=== PATIENT | male | born 1955 | race African-American/Black ===

== ENCOUNTER 2016-06-07 12:22 | Emergency (ER) | payer OTHER ==
[~2016-06-07] VITALS: Ht 185.4 cm; Wt 63.5 kg
[~2016-06-07 12:22] MED LIST: DOXY100T PO; PRED20 PO; Z.0.NO CURRENT MEDS
[2016-06-07 12:30] VITALS: BP 153/84; PULSE 88; RESP 15; TEMP 98.1; O2SAT 98
--- NOTE | 2016-06-07 12:30 | PD ---
Physical Exam Date Seen by Provider: Jun 07, 2016 Time Seen by Provider: 12:28 Narrative 61 year old male presents to the emergency department for evaluation of right hip. He had previous surgery for pelvic fracture in November 2015. He feels like there may be a screw loose. He is able to ambulate, but with pain. No recent trauma. Patient awaiting bed placement. [facility] Supervised Visit with QUANG: Zoie Hoang Jun 07, 2016 12:30
--- NOTE | 2016-06-07 12:49 | PD ---
HPI Chief Complaint: Back/ Neck Pain or Injury Time Seen by Provider: 12:43 Travel History International Travel<30 days: No Contact w/Intl Traveler<30days: No Traveled to known affect area: No History of Present Illness HPI Patient is a 61-year-old male presents the emergency department with complaint of pain. Patient fractured his pelvis in November 2015 and had surgery at [facility] in [place]. States that he had 3 screws placed in the pelvis, 2 anteriorly and one posteriorly. The posterior screw has been "wiggling out" and giving patient pain. He is only been ambulatory for approximately 2 months duration and states that during this time it has gotten worse. He has not called his surgeon at [facility]. [facility]. Pain is moderate, throbbing, point tenderness in the posterior pelvis at the site of the screw. PFSH Past Medical History Diminished Hearing: No Inguinal Hernia: Yes Immunizations Current: No Past Surgical History Abdominal Surgery: Yes (HERNIA SURGERY) Social History Alcohol Use: No Tobacco Use: No Substance Use: No Allergies-Medications (Allergen,Severity, Reaction): Coded Allergies: No Known Allergies (Verified , 06/07/16) Reported Meds & Prescriptions Reported Meds & Active Scripts Active Reported Proair Hfa 8.5 GM Inh (Albuterol Sulfate) 90 Mcg/Act Aer 1 Puff INH Q4H PRN 108 mcg/actuation Gabapentin 300 Mg Cap 300 Mg PO HS [Expectorant] Unknown Dose PO DAILY Ibuprofen 600 Mg Tab 600 Mg PO Q6H PRN Review of Systems Except as stated in HPI: all other systems reviewed are Neg Physical Exam Narrative GENERAL: Thin male in mild distress SKIN: Focused skin assessment warm/dry. HEAD: Normocephalic. EYES: No scleral icterus. No injection or drainage. ENT: Mucous membranes pink and moist. NECK: Supple CARDIOVASCULAR: Regular rate and rhythm. RESPIRATORY: No accessory muscle use. MUSCULOSKELETAL: Posterior pelvis with screw protruding slightly from the bony rim of the pelvic anatomy. Patient has point tenderness at this region. There is no erythema or open wounds. NEUROLOGICAL: Awake and alert. Normal speech. PSYCHIATRIC: Appropriate mood and affect; insight and judgment normal. Data Data Last Documented VS Vital Signs Date Time Temp Pulse Resp B/P Pulse Ox O2 Delivery O2 Flow Rate FiO2 06/07/16 13:18 16 06/07/16 12:30 98.1 88 153/84 98 Orders Pelvis Complete, Min 3 Vws (06/07/16 ) Acetaminophen (Tylenol) (06/07/16 13:00) Pelvis, Ap And Lat (06/07/16 ) MDM Medical Decision Making Medical Screen Exam Complete: Yes Emergency Medical Condition: Yes Medical Record Reviewed: Yes Differential Diagnosis 61-year-old male here with complaint of posterior pelvic pain at site of previous pelvic screw. Differential includes acute on chronic pain, hardware displacement, hardware fracture. Narrative Course Patient given Tylenol for pain. X-rays of the pelvis showed hardware intact. One of the screws does appear to protrude significantly posteriorly. This is not acute, and patient was encouraged to follow up with his orthopedic surgeon or [facility]. Diagnosis Primary Impression: Pain from implanted hardware Qualified Code: T85.848A - Pain from implanted hardware, initial encounter Additional Impressions: Postoperative pain Status post fracture of pelvis Referrals: James Nation MD call for appointment Orthopedist call for appointment Additional Instructions: Tylenol, ibuprofen as needed for pain. Pad the affected area. Follow-up with orthopedic surgeon through [facility], where surgery was performed, or through the [facility]. Dr. Nation's information was also provided as a local orthopedic surgeon to [place]. Med/Other Pt SpecificInfo: No Change to Meds Disposition: 01 DISCHARGE HOME Condition: Stable Carol Tirado MD Jun 07, 2016 12:49
[2016-06-07] MEDS ORDERED: ACETAMINOPHEN 500 MG CPLT PO ONE (13:00)
[2016-06-07] MEDS ORDERED: EXPECTORANT PO (13:26)
[2016-06-07] MEDS ORDERED: IBUP-232 PO (13:26)
[2016-06-07] MEDS ORDERED: ALBUAER3 INH (13:26)
[2016-06-07] MEDS ORDERED: GABA300C5 PO (13:26)
--- NOTE | 2016-06-07 13:26 | RADRPT ---
EXAM DATE/TIME: 06/07/2016 13:03 [facility] COMPARISON: No previous studies available for comparison. INDICATIONS : Patient complains of pelvis pain. MEDICAL HISTORY : None. SURGICAL HISTORY : Pelvic fracture ENCOUNTER: Initial ACUITY: 2 weeks PAIN SCORE: 10/10 LOCATION: Right PELVIS FINDINGS: There are long cancellous screws in the right hemipelvis, one of which traverses the right sacroiliac joint lateral to medial, extending well into the sacrum crossing midline slightly to the left. The s econd enters the anterior ilium and proceeds posteriorly, also likely crossing the SI joint obliquely . The screw appears to protrude significantly into the dorsal soft tissues of the buttock region. The re is prominent degenerative change visualized lower lumbar spine with large lumbosacral osteophytes/ syndesmophytes. The hips are grossly symmetric without definite fracture or dislocation. I see no dis placed pelvic fracture and no destructive changes are identified. CONCLUSION: Previous hardware fixation of the right SI joint as described. No definite acute bony process Emiliano Aburto MD on June 07, 2016 at 13:21 Board Certified Radiologist. This report was verified electronically.
== END 2016-06-07 14:11 | disposition home or self-care (01) ==
LOC: NEPD 12:22
DX: T84.84XA Pain due to internal orthopedic prosthetic devices, implants and grafts, initial encounter (principal); Z98.890 Other specified postprocedural states
CPT/HCPCS: 72170; 72190; 99283